=== PATIENT | female | born 1985 | race Caucasian/White ===

== ENCOUNTER 2021-10-25 04:13 | Emergency (ER) | payer MEDICAID ==
[2021-10-25 04:29] VITALS: BP 149/112
--- NOTE | 2021-10-25 04:32 | ED Back Pain ---
General Stated Complaint: PX IN BOTH KIDNEYS Source of Information: Patient History of Present Illness Date Seen by Provider: Oct 25, 2021 Time Seen by Provider: 04:24 Initial Comments PT ARRIVES VIA POV FROM HOME C/O BILATERAL FLANK PAIN SINCE YESTERDAY--WOKE UP WITH IT PAIN COMES AND GOES, NOTHING WORSENS OR IMPROVES PAIN NO RADIATION OF PAIN + NAUSEA THIS AM, NO VOMITING NO URINARY SYMPTOMS NO FEVER NO ABDOMINAL PAIN NO PARESTHESIAS OR MOTOR DEFICITS HAD NORMAL BM YESTERDAY TOOK 1 TYLENOL YESTERDAY AND IT HELPED A LITTLE, BUT HAS NOT TAKEN ANYTHING ELSE FOR PAIN NO HISTORY OF SIMILAR NO PRIOR ABDOMINAL SURGERIES, 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 OR UNUSUAL ACTIVITIES LMP--UNKNOWN, HAS IUD IN PLACE. Other Comments PCP: [facility] Allergies and Home Medications Allergies Coded Allergies: amoxicillin (Verified Allergy, Unknown, 10/25/21) Review of Systems Constitutional: no symptoms reported Respiratory: no symptoms reported Cardiovascular: no symptoms reported Gastrointestinal: see HPI; No abdominal pain, No constipation, No diarrhea; nausea; No vomiting Genitourinary: no symptoms reported : No Control/STD Prophylaxis: IUD Musculoskeletal: see HPI, back pain Skin: no symptoms reported Psychiatric/Neurological: No Symptoms Reported Past Atxzvua-Ikrcaw-Ynebry Hx Patient Social History Tobacco Use?: Yes Tobacco type used: Cigarettes Smoking Status: Current Everyday Smoker Substance use?: No (DENIES) Alcohol Use?: No (DENIES) Past Medical History Surgeries: No Respiratory: No Cardiac: No Neurological: No : No Reproductive Disorders: No GYM MANAGER History: IUD Genitourinary: No Gastrointestinal: No Musculoskeletal: No Endocrine: No HEENT: No Cancer: No Psychosocial: No Integumentary: No Blood Disorders: No Physical Exam Vital Signs Vital Signs - First Documented 10/25/21 10/25/21 04:29 05:23 Temp 36.0 Pulse 96 Resp 18 B/P (MAP) 149/112 (124) Pulse Ox 98 O2 Delivery Room Air Capillary Refill : Height, Weight, BMI Height: '" Weight: lbs. oz. 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 Norm as Tested Skin: Normal Color, Warm/Dry, Tattoos/Piercings (EXTENSIVE TATTOOS) Progress/Results/Core Measures Results/Orders Lab Results Laboratory Tests Test 10/25/21 04:19 10/25/21 05:03 Range/Units Urine Color YELLOW Urine Clarity CLEAR Urine pH 6.0 5-9 Urine Specific [place] 1.025 H 1.016-1.022 Urine Protein NEGATIVE NEGATIVE Urine Glucose (UA) NEGATIVE NEGATIVE Urine Ketones NEGATIVE NEGATIVE Urine Nitrite NEGATIVE NEGATIVE Urine Bilirubin NEGATIVE NEGATIVE Urine Urobilinogen 0.2 < = 1.0 MG/DL Urine Leukocyte Esterase NEGATIVE NEGATIVE Urine RBC (Auto) NEGATIVE NEGATIVE Urine RBC NONE /HPF Urine WBC NONE /HPF Urine Squamous Epithelial Cells 5-10 /HPF Urine Crystals NONE /LPF Urine Bacteria NEGATIVE /HPF Urine Casts NONE /LPF Urine Mucus SMALL H /LPF Urine Culture Indicated NO Urine Opiates Screen NEGATIVE NEGATIVE Urine Oxycodone Screen NEGATIVE NEGATIVE Urine Methadone Screen NEGATIVE NEGATIVE Urine Propoxyphene Screen NEGATIVE NEGATIVE Urine Barbiturates Screen NEGATIVE NEGATIVE Ur Tricyclic Antidepressants Screen NEGATIVE NEGATIVE Urine Phencyclidine Screen NEGATIVE NEGATIVE Urine Amphetamines Screen NEGATIVE NEGATIVE Urine Methamphetamines Screen NEGATIVE NEGATIVE Urine Benzodiazepines Screen NEGATIVE NEGATIVE Urine Cocaine Screen NEGATIVE NEGATIVE Urine Cannabinoids Screen NEGATIVE NEGATIVE White Blood Count 9.4 4.3-11.0 10^3/uL Red Blood Count 4.57 3.80-5.11 10^6/uL Hemoglobin 14.0 11.5-16.0 g/dL Hematocrit 42 35-52 % Mean Corpuscular Volume 92 80-99 fL Mean Corpuscular Hemoglobin 31 25-34 pg Mean Corpuscular Hemoglobin Concent 33 32-36 g/dL Red Cell Distribution Width 12.2 10.0-14.5 % Platelet Count 269 130-400 10^3/uL Mean Platelet Volume 11.4 9.0-12.2 fL Immature Granulocyte % (Auto) 0 % Neutrophils (%) (Auto) 57 42-75 % Lymphocytes (%) (Auto) 34 12-44 % Monocytes (%) (Auto) 7 0-12 % Eosinophils (%) (Auto) 2 0-10 % Basophils (%) (Auto) 0 0-10 % Neutrophils # (Auto) 5.4 1.8-7.8 10^3/uL Lymphocytes # (Auto) 3.2 1.0-4.0 10^3/uL Monocytes # (Auto) 0.6 0.0-1.0 10^3/uL Eosinophils # (Auto) 0.2 0.0-0.3 10^3/uL Basophils # (Auto) 0.0 0.0-0.1 10^3/uL Immature Granulocyte # (Auto) 0.0 0.0-0.1 10^3/uL Sodium Level 139 135-145 MMOL/L Potassium Level 3.7 3.6-5.0 MMOL/L Chloride Level 106 98-107 MMOL/L Carbon Dioxide Level 20 L 21-32 MMOL/L Anion Gap 13 5-14 MMOL/L Blood Urea Nitrogen 10 7-18 MG/DL Creatinine 0.70 0.60-1.30 MG/DL Estimat Glomerular Filtration Rate 116 BUN/Creatinine Ratio 14 Glucose Level 103 70-105 MG/DL Calcium Level 9.3 8.5-10.1 MG/DL Corrected Calcium 9.1 8.5-10.1 MG/DL Magnesium Level 2.0 1.6-2.4 MG/DL Total Bilirubin 0.3 0.1-1.0 MG/DL Aspartate Amino Transf (AST/SGOT) 14 5-34 U/L Alanine Aminotransferase (ALT/SGPT) 16 0-55 U/L Alkaline Phosphatase 67 40-136 U/L Total Protein 7.0 6.4-8.2 GM/DL Albumin 4.2 3.2-4.5 GM/DL Amylase Level 29 25-125 U/L Lipase 27 8-78 U/L My Orders Orders - XIOMARA BIGGS DO Urine Bedside (10/25/21 04:23) Ua Culture If Indicated (10/25/21 04:23) Drug Screen Stat (Urine) (10/25/21 04:28) Ed Iv/Invasive Line Start (10/25/21 04:55) Ct Abd/Pelvis Wo(Kidney Stone) (10/25/21 04:55) Amylase (10/25/21 04:55) Cbc With Automated Diff (10/25/21 04:55) Comprehensive Metabolic Panel (10/25/21 04:55) Lipase (10/25/21 04:55) Magnesium (10/25/21 04:55) Ed Iv/Invasive Line Start (10/25/21 04:55) Ed Iv/Invasive Line Start (10/25/21 04:55) Lactated Ringers (Lr 1000 Ml Iv Solution (10/25/21 05:00) Ketorolac Injection (Toradol Injection) (10/25/21 04:55) Ondansetron Injection (Zofran Injectio (10/25/21 05:00) Medications Given in ED Current Medications Medications Dose Ordered Sig/Dada Route Start Time Stop Time Status Last Admin Dose Admin Lactated Ringer's 1,000 ml @ 0 mls/hr Q0M ONCE IV 10/25/21 05:00 10/25/21 05:01 DC 10/25/21 05:07 0 MLS/HR Ondansetron HCl 4 mg ONCE ONCE IVP 10/25/21 05:00 10/25/21 05:01 DC 10/25/21 05:06 4 MG Vital Signs/I&O 10/25/21 10/25/21 10/25/21 04:29 05:23 06:15 Temp 36.0 Pulse 96 66 61 Resp 18 18 18 B/P (MAP) 149/112 (124) 151/100 133/83 Pulse Ox 98 97 95 O2 Delivery Room Air Room Air Diagnostic Imaging Comments CT ABDOMEN/PELVIS--PER RADIOLOGIST REPORT AT 0620 FINDINGS: The lung bases are clear. The liver, gallbladder and bile ducts are normal. Pancreas and spleen are normal. The adrenal glands are not enlarged. Kidneys show no evidence of hydronephrosis. There are no calculi. No perinephric fluid. Ureters and bladder appear normal. Bladder is decompressed. Aorta is not dilated. There is no evidence of intraabdominal lymphadenopathy. The stomach and small bowel are not distended. The colon shows normal stool and gas pattern. The appendix is normal. No evidence of colitis or diverticulitis. There is IUD within the uterine cavity in good position. No pelvic masses. There is no free air or free fluid. No bony abnormalities. IMPRESSION: Normal CT abdomen and pelvis. Reviewed: Reviewed by Me Departure Impression Primary Impression: Bilateral flank pain Disposition: HOME, SELF-CARE Condition: Stable Departure-Patient Inst. Decision time for Depature: 06:20 Referrals: [facility] (PCP/Family) Primary Care Physician Patient Instructions: Flank Pain ED Add. Discharge Instructions: HOME, REST LOTS OF CLEAR LIQUIDS FOLLOW UP WITH YOUR DR. IN 2-3 DAYS FOR FURTHER CARE Scripts Ondansetron (Ondansetron Odt) 8 Mg Tab.rapdis 8 MG PO Q6H, #10 TAB Prov: XIOMARA BIGGS DO 10/25/21 Ketorolac Tromethamine (Ketorolac Tromethamine) 10 Mg Tablet 10 MG PO Q6H for Pain, #15 TAB Prov: XIOMARA BIGGS DO 10/25/21 Cyclobenzaprine HCl (Cyclobenzaprine HCl) 10 Mg Tablet 10 MG PO Q8H PRN for SPASMS, #15 TAB 0 Refills Prov: XIOMARA BIGGS DO 10/25/21 XIOMARA BIGGS DO Oct 25, 2021 04:32
[2021-10-25 04:39] LABS: BILIRUBIN,URINE NEGATIVE (NEGATIVE); CLARITY,URINE CLEAR; COLOR,URINE YELLOW; GLUCOSE, URINE (UA) NEGATIVE (NEGATIVE); KETONES,URINE NEGATIVE (NEGATIVE); LEUKOCYTE ESTERASE ,URINE NEGATIVE (NEGATIVE); NITRITE,URINE NEGATIVE (NEGATIVE); PROTEIN,URINE NEGATIVE (NEGATIVE)
[2021-10-25 04:46] LABS: BACTERIA,URINE NEGATIVE /HPF
[2021-10-25] MEDS ORDERED: KETOROLAC 30 MG/ML VIAL IVP STA (04:55)
[2021-10-25 04:57] LABS: AMPHETAMINE SCREEN, URINE NEGATIVE (NEGATIVE); BARBITURATE SCREEN URINE NEGATIVE (NEGATIVE); BENZODIAZEPINES SCREEN URINE NEGATIVE (NEGATIVE); CANNABINOID SCREEN, URINE NEGATIVE (NEGATIVE); COCAINE SCREEN URINE NEGATIVE (NEGATIVE); METHADONE STAT NEGATIVE (NEGATIVE); OPIATE SCREEN URINE NEGATIVE (NEGATIVE); OXYCODONE STAT NEGATIVE (NEGATIVE); PROPOXYPHENE STAT NEGATIVE (NEGATIVE); TRICYCLIC ANTIDEPRESSANTS SCRE NEGATIVE (NEGATIVE)
[2021-10-25] MEDS ORDERED: LACTATED RINGERS 1,000 ML IV ONE (05:00)
[2021-10-25] MEDS ORDERED: ONDANSETRON 4 MG/2 ML (SDV) Z0FRAN IVP ONE ×2 (05:00→06:30)
[2021-10-25 05:10] LABS: BASOPHILS % (AUTO) 0 % (0-10); EOSINOPHILS # (AUTO) 0.2 10^3/uL (0.0-0.3); EOSINOPHILS % (AUTO) 2 % (0-10); HEMATOCRIT 42 % (35-52); LYMPHOCYTES # (AUTO) 3.2 10^3/uL (1.0-4.0); LYMPHOCYTES % (AUTO) 34 % (12-44); MEAN CORPUSCULAR HEMOGLOBIN 31 pg (25-34); MEAN CORPUSCULAR HGB CONC 33 g/dL (32-36); MEAN CORPUSCULAR VOLUME 92 fL (80-99); MEAN PLATELET VOLUME 11.4 fL (9.0-12.2); MONOCYTES # (AUTO) 0.6 10^3/uL (0.0-1.0); MONOCYTES % (AUTO) 7 % (0-12); NEUTROPHILS # (AUTO) 5.4 10^3/uL (1.8-7.8); NEUTROPHILS % (AUTO) 57 % (42-75); PLATELET COUNT 269 10^3/uL (130-400); WHITE BLOOD COUNT 9.4 10^3/uL (4.3-11.0)
[2021-10-25 05:17] LABS: ALBUMIN 4.2 GM/DL (3.2-4.5); POTASSIUM 3.7 MMOL/L (3.6-5.0)
[2021-10-25 05:18] LABS: CALCIUM 9.3 MG/DL (8.5-10.1)
[2021-10-25 05:21] LABS: BILIRUBIN,TOTAL 0.3 MG/DL (0.1-1.0)
[2021-10-25 05:23] LABS: CREATININE SERUM 0.7 MG/DL (0.60-1.30)
--- NOTE | 2021-10-25 06:19 | Diagnostic Imaging Report ---
PROCEDURE: CT urinary tract, rule out kidney stone. TECHNIQUE: Multiple contiguous axial images were obtained through the abdomen and pelvis without the use of intravenous contrast. Auto Exposure Controls were utilized during the CT exam to meet ALARA standards for radiation dose reduction. INDICATION: Back pain. FINDINGS: The lung bases are clear. The liver, gallbladder and bile ducts are normal. Pancreas and spleen are normal. The adrenal glands are not enlarged. Kidneys show no evidence of hydronephrosis. There are no calculi. No perinephric fluid. Ureters and bladder appear normal. Bladder is decompressed. Aorta is not dilated. There is no evidence of intraabdominal lymphadenopathy. The stomach and small bowel are not distended. The colon shows normal stool and gas pattern. The appendix is normal. No evidence of colitis or diverticulitis. There is IUD within the uterine cavity in good position. No pelvic masses. There is no free air or free fluid. No bony abnormalities. IMPRESSION: Normal CT abdomen and pelvis. Dictated by: Dictated on workstation # [id number]
[2021-10-25] MEDS ORDERED: KETO10TA PO (06:27)
[2021-10-25] MEDS ORDERED: ONDA8TAB13 PO (06:27)
[2021-10-25] MEDS ORDERED: CYCL10TA25 PO (06:27)
[2021-10-25] MEDS ORDERED: ORPHENADRINE 60 MG/2 ML (NORFLEX) AMP (ED ONLY) IV ONE (06:30)
== END 2021-10-25 06:35 | disposition home or self-care (01) ==
LOC: ER 04:19
DX: R10.9 Unspecified abdominal pain (principal); F17.210 Nicotine dependence, cigarettes, uncomplicated; Z97.5 Presence of (intrauterine) contraceptive device
CPT/HCPCS: 36415; 74176; 80053; 80306; 81000; 82150; 83690; 83735; 84703; 85025